=== PATIENT | female | born 1955 | race Caucasian/White ===

== ENCOUNTER 2017-08-08 14:37 | Outpatient (RCR) | payer OTHER ==
--- NOTE | 2017-05-13 15:47 | PT PLAN OF CARE ---
Physician: JIMENEZ Mauro Patient is being seen: 2x/week Therapist: Keven Victor, PT, DPT MEDICAL DIAGNOSIS: hip pain, L hip bursitis TREATMENT DIAGNOSIS: same, low back pain with radiating pain Date of Onset: 02/11/15 Date of Initial Evaluation: 02/11/17 Date patient was last seen: 05/13/17 Number of treatments: 20 Number of cancellations/No shows: 0 INTERVENTIONS: Manual Therapy/STM/MET Strengthening/condition Ice/Heat Range of Motion Spinal Stabilization Work Hardening/Cond Stretching Neuromuscular Re-ed Closed Chain Program Electrical Stim Posture/Body mechanics Gait Trg/Balance Trg Home Exercise Program Therapeutic Activities GOALS: 5 weeks: Pt will be able to sleep on L hip without any pain 0/10 to improve QOl. 5 weeks: Pt will be able to demonstrate greater than 4+/5 with B hip flexion, extension, abduction, and B knee flexion to improve function and QOL. 5 weeks: Pt will be able to walk 4 miles without an increase in her L hip to improve function and QOL. PATIENT'S GOAL: walk 4 miles, sleep on L hip Status of Patient's Goals: Progressing well Patient Compliance: Good Prognosis: Excellent Reasons for continuing therapy: This is a progress note for Jessica Gibbs. She reports she is doing well. She states that she continues to have catching with walking on the L lateral hip. She reports that she no longer has the constant pain on the L lateral hip. In addition, she reports that she feels like the pain is migrating more to the back versus on the L lateral hip and feels like the moving pain is limiting her ambulation more than her L lateral hip. She states that the L lateral hip pain causes random catches throughout the day and then the catch subsides quickly after the catch. Overall, she reports that she feels like she is getting better but at a slower rate than she wants to. She is progressing within PT. She demonstrates decreased/abolished constant L lateral hip pain and typically only has pain with her random catches that happen throughout the day. However, she has developed some low back pain with radiating pain that centralized with extension based principles and peripheralized with flexion and/or lateral based principles. By the end of the session, she demonstrated centralized low back pain and improved trunk AROM in all directions with normal end feels. We will continue 10 more session or less to return her to prior level of function. Posture: She demonstrates mild increase in B rounded shoulder, thoracic kyphosis , and lumbar lordosis. ROM: Trunk AROM: flexion: WNL with normal end feel. extension: WNL with normal end feel. L sidegliding: WNL with normal end feel. R sidegliding: WNL and normal end feel. B LE's (hips, knees, and ankles): WNL with normal end feels Strength: B hip flexion, extension, abduction, B knee flexion: 4/5 to 4+/5 with no pain. B hip adduction, B knee extension, B ankle PF and DF: 5/5 with no pain. Mobility: Independent If you have any questions please contact me at [phone]. Thank you, Keven Victor, PT, DPT [facility]
--- NOTE | 2017-05-13 16:24 | PT PLAN OF CARE ---
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 GOALS: 1: Pt to maintain dry and intact dressing between visits. 2: Wound to demonstrate 100% granulation tissue 3: Wound to gradually epithelize from edges inward and demonstrate 100% closure. PATIENT'S GOAL: Wound closure Status of Patient's Goals: partially met, ongoing Patient Compliance: Excellent Prognosis: Excellent Reasons for continuing therapy: Wound has demonstrated increased granulation tissue in the base with no further s/s of infection. The pt will benefit from further skilled PT wound care to facilitate wound closure while preventing further complications Thank you for this referral. If you have any questions, comments, or concerns about this report or plan, please contact me at . Peri Butts, PT, DPT [facility]
--- NOTE | 2017-05-28 08:48 | PT PLAN OF CARE ---
Physician: JIMENEZ Cardozo Patient is being seen: Jessica Gibbs Therapist: Peri Butts, PT, DPT Medical Diagnosis: Delayed closure of surgical incision, L) medial LE Treatment Diagnosis: Delayed closure of surgical incision, L) medial LE Date of Onset: 03/13/17 Date of Initial Evaluation: 05/13/17 Date patient was last seen: 05/27/17 Number of treatments: 5 (since time of last recertification) Number of cancellations/No shows: 0 INTERVENTIONS:Pt has been seen for advanced wound care including skilled sharps debridement as well as advanced wound care product selection and application. GOALS: (all met) 1: Pt to maintain dry and intact dressing between visits. 2: Wound to demonstrate 100% granulation tissue 3: Wound to gradually epithelize from edges inward and demonstrate 100% closure. PATIENT'S GOAL: Wound closure Status of Patient's Goals: met Patient Compliance: Excellent Reasons for continuing therapy: Dry, stable eschar present over area of previous wound, with no s/s of infection. At this time it seems appropriate to leave the wound as is and allow the eschar to fall off over time. There is no longer any depth to the wound from previous rounds of debridement. PT cleansed the area with sterile saline and gauze and covered with a simple bandaid. Pt instructed to watch closely for s/s of infection. No further PT visits planned at this time. Thank you for this referral. If you have any questions, comments, or concerns about this report or plan, please contact me at . Peri Butts, PT, DPT [facility]
--- NOTE | 2017-06-17 15:58 | PT PLAN OF CARE ---
Physician: JIMENEZ Mauro Patient is being seen: 2x/week Therapist: Keven Victor, PT, DPT MEDICAL DIAGNOSIS: hip pain, L hip bursitis TREATMENT DIAGNOSIS: same, low back pain with radiating pain Date of Onset: 02/11/15 Date of Initial Evaluation: 02/11/17 Date patient was last seen: 06/17/17 Number of treatments: 30 Number of cancellations/No shows: 0 INTERVENTIONS: Manual Therapy/STM/MET Strengthening/condition Ice/Heat Range of Motion Spinal Stabilization Work Hardening/Cond Stretching Neuromuscular Re-ed Closed Chain Program Electrical Stim Posture/Body mechanics Gait Trg/Balance Trg Home Exercise Program Therapeutic Activities GOALS: 5 weeks: Pt will be able to sleep on L hip without any pain 0/10 to improve QOl. 5 weeks: Pt will be able to demonstrate greater than 4+/5 with B hip flexion, extension, abduction, and B knee flexion to improve function and QOL. 5 weeks: Pt will be able to walk 4 miles without an increase in her L hip to improve function and QOL. PATIENT'S GOAL: walk 4 miles, sleep on L hip Status of Patient's Goals: Progressing well Patient Compliance: Good Prognosis: Excellent Reasons for continuing therapy: This is a progress note for Jessica Gibbs. She reports that she feels like the pain is changing and is no longer feeling like bursitis. She states that she feels like it is true hip pain and states that it feels like it is getting worse. She states that her leg feels like it is really weak all of a sudden. She states that it is painful to walk and sometimes feels like "she wants to use crutches". She states that the low back pain has abolished. Today, we performed an examination with repeated movements targeting her L hip to determine the extent of her injury applying pressure around different aspects of the hips. The pain peripheralized or became worse with hip extension, hip adduction, hip ER, and hip IR and became decreased or better with hip abduction along with increased hip AROM in all directions with decreased pain with ambulation. She was instructed to perform her home exercise every 2 hours to decrease pain and improve function and QOL. If she does not improve in the next few sessions, we will refer back for more imaging. Posture: She demonstrates mild increase in B rounded shoulder, thoracic kyphosis , and lumbar lordosis. ROM: Trunk AROM: flexion: WNL with normal end feel. extension: WNL with normal end feel. L sidegliding: WNL with normal end feel. R sidegliding: WNL and normal end feel. B LE's (hips, knees, and ankles): WNL with normal end feels Strength: B hip flexion, extension, abduction, B knee flexion: 4/5 to 4+/5 with no pain. B hip adduction, B knee extension, B ankle PF and DF: 5/5 with no pain. Mobility: Independent If you have any questions please contact me at [phone]. Thank you, Keven Victor, PT, DPT [facility]
[~2017-08-08 14:37] MED LIST: ARI10; ARI2 PO; CEP500 PO; CLIN300C99 PO; DUONEB INH; ESC10; ESCI20TA38 PO; ESTE625 PO; HYDR-385 PO; HYDR12.561 PO; LORA-633 PO; PRE20 PO
== END 2017-08-11 ==
LOC: PT 14:37
PROVIDERS: ATTEND Nurse Practitioner Family
DX: T81.32XA Disruption of internal operation (surgical) wound, not elsewhere classified, initial encounter (principal); M25.552 Pain in left hip; M54.5 Low back pain; J44.9 Chronic obstructive pulmonary disease, unspecified; I10 Essential (primary) hypertension; M70.62 Trochanteric bursitis, left hip

== ENCOUNTER 2017-08-26 14:24 | Outpatient (RCR) | payer OTHER ==
--- NOTE | 2017-08-13 08:50 | PT PLAN OF CARE ---
Physician: JIMENEZ Cardozo Patient is being seen: 2x/week Therapist: Keven Victor, PT, DPT Medical Diagnosis: Delayed closure of surgical incision, L) medial LE Treatment Diagnosis: Delayed closure of surgical incision, L) medial LE Date of Onset: 03/13/17 Date of Initial Evaluation: 05/13/17 Date patient was last seen: 08/12/17 Number of treatments: 37 Number of cancellations/No shows: 2 INTERVENTIONS: Manual Therapy/STM/MET Strengthening/condition Ice/Heat Range of Motion Spinal Stabilization Work Hardening/Cond Stretching Neuromuscular Re-ed Closed Chain Program Electrical Stim Posture/Body mechanics Gait Trg/Balance Trg Home Exercise Program Therapeutic Activities GOALS: 5 weeks: Pt will be able to sleep on L hip without any pain 0/10 to improve QOl. MET 5 weeks: Pt will be able to demonstrate greater than 4+/5 with B hip flexion, extension, abduction, and B knee flexion to improve function and QOL. MET 5 weeks: Pt will be able to walk 4 miles without an increase in her L hip to improve function and QOL. Progressing well PATIENT'S GOAL: walk 4 miles, sleep on L hip Status of Patient's Goals: Progressing well Patient Compliance: Good Prognosis: Excellent Reasons for continuing therapy: This is a progress note for Jessica Gibbs. She reports that she is doing much better. She reports that she can walk further prior to the catching beginning. She reports that the catching pain comes and goes and it used to be constant all the time. She states that the bursitis feels much better, her anterior hip pain feels much better, however, she continues to complain of posterior hip pain that occurs when the catching occurs. She reports that when she feels the catching/posterior hip pain, she can perform repeated ER and it will immediately go away and she can resume her daily life activities. She reports that she would like to be able to walk a block without the catching to occur. She feels like she is getting so close to doing so. She has demonstrated significant improvements especially with ambulation. She was able to consistently ambulate 1026 feet prior to the pain/ catching occurring, which is a significant improvement as a few weeks ago she was only able to ambulate less than 50 feet prior to the catching/pain occurring. With the current progress, I am guessing she will be discharged within the 10 visits and transitioned to a home exercise program. Posture: She demonstrates mild increase in B rounded shoulder, thoracic kyphosis , and lumbar lordosis. ROM: Trunk AROM: flexion: WNL with normal end feel. extension: WNL with normal end feel. L sidegliding: WNL with normal end feel. R sidegliding: WNL and normal end feel. B LE's (hips, knees, and ankles): WNL with normal end feels Strength: B hip flexion, extension, abduction, B knee flexion: 4+/5 with no pain. B hip adduction, B knee extension, B ankle PF and DF: 5/5 with no pain. Mobility: Independent If you have any questions please contact me at [phone]. Thank you, Keven Victor, PT, DPT [facility]
--- NOTE | 2017-08-26 14:55 | PT PLAN OF CARE ---
Physician: JIMENEZ Cardozo Patient is being seen: 1-2x/week Therapist: Keven Victor, PT, DPT Medical Diagnosis: Delayed closure of surgical incision, L) medial LE Treatment Diagnosis: Delayed closure of surgical incision, L) medial LE Date of Onset: 03/13/17 Date of Initial Evaluation: 05/13/17 Date patient was last seen: 08/26/17 Number of treatments: 39 Number of cancellations/No shows: 1 INTERVENTIONS: Manual Therapy/STM/MET Strengthening/condition Ice/Heat Range of Motion Spinal Stabilization Work Hardening/Cond Stretching Neuromuscular Re-ed Closed Chain Program Electrical Stim Posture/Body mechanics Gait Trg/Balance Trg Home Exercise Program Therapeutic Activities GOALS: 5 weeks: Pt will be able to sleep on L hip without any pain 0/10 to improve QOl. MET 5 weeks: Pt will be able to demonstrate greater than 4+/5 with B hip flexion, extension, abduction, and B knee flexion to improve function and QOL. MET 5 weeks: Pt will be able to walk 4 miles without an increase in her L hip to improve function and QOL. MET PATIENT'S GOAL: walk 4 miles, sleep on L hip Status of Patient's Goals: MET Patient Compliance: Good Prognosis: Excellent Reasons for continuing therapy: This is a discharge note for Jessica Gibbs. She reports that she is doing much better. She states that she has returned to walking with 0/10 pain and 0/10 catching. She has progressed well within PT and demonstrated the following improvements: increased trunk AROM in all directions , increased hip AROM in all directions, and abolished low back pain, abolished hip pain, and abolished catching. Furthermore, she has returned to ambulation without any catching. She has met all of her goals. She is independent with her HEP and as a result, she will be discharged from formal PT to [facility]. Posture: She demonstrates mild increase in B rounded shoulder, thoracic kyphosis , and lumbar lordosis. ROM: Trunk AROM: flexion: WNL with normal end feel. extension: WNL with normal end feel. L sidegliding: WNL with normal end feel. R sidegliding: WNL and normal end feel. B LE's (hips, knees, and ankles): WNL with normal end feels Strength: B hip flexion, extension, abduction, B knee flexion: 4+/5 with no pain. B hip adduction, B knee extension, B ankle PF and DF: 5/5 with no pain. Mobility: Independent If you have any questions please contact me at [phone]. Thank you, Keven Victor PT, DPT [facility]
== END 2017-08-26 18:00 | disposition home or self-care (01) ==
LOC: PT 14:24
PROVIDERS: ATTEND Nurse Practitioner Family
DX: T81.32XA Disruption of internal operation (surgical) wound, not elsewhere classified, initial encounter (principal); M25.552 Pain in left hip; M54.5 Low back pain; J44.9 Chronic obstructive pulmonary disease, unspecified; I10 Essential (primary) hypertension; M70.62 Trochanteric bursitis, left hip